=== PATIENT | male | born 1975 | race Caucasian/White ===

== ENCOUNTER 2018-05-24 06:04 | Emergency (ER) | payer OTHER ==
--- NOTE | 2018-05-24 06:22 | ED ---
Influenza-Like Illness - HPI Summary HPI Summary: Patient is a 43 y/o male who presents to the ED c/o fever. Last night he began to have a headache, subjective fever, body aches, and chills at 21:00. At 00:30 this morning he also started to have N/V. He denies any rash, dysuria, hematuria , cough, congestion, or abdominal pain. Patient had a normal BM yesterday. As per , their child is at home sick with a fever and cough. Patient also notes that he had a lumbar disc fusion surgery last week in [place]. He rates his current pain as an 8/10 in severity. Patient denies any pain radiating down his legs. He is currently taking Percocet, Flexeril, Duphalac, and Miralax. - History of Current Complaint Chief Complaint: EDFluSymptoms Time Seen by Provider: 05/24/18 06:16 Hx Obtained From: Patient Onset/Duration: Gradual Onset, Lasting Days - Yesterday at 21:00, Still Present Severity: Severe - 8/10 Associated Signs & Symptoms: Fever, Headache, Vomiting Related Hx: Possible Flu/Infectious Exposure - child sick at home - Allergy/Home Medications Allergies/Adverse Reactions: Allergies Allergy/AdvReac Type Severity Reaction Status Date / Time No Known Allergies Allergy Verified 09/25/16 15:18 PMH/Surg Hx/FS Hx/Imm Hx Endocrine/Hematology History: Denies: Hx Diabetes Musculoskeletal History: Reports: Hx Back Problems Denies: Hx Scoliosis Neurological History: Reports: Other Neuro Impairments/Disorders - PAIN CLINIC PT - Surgical History Surgery Procedure, Year, and Place: lumbar disc fusion Infectious Disease History: No Infectious Disease History: Denies: Traveled Outside the in Last 30 Days - Family History Known Family History: Negative: Hypertension, Diabetes - Social History Alcohol Use: None Hx Substance Use: No Substance Use Type: Reports: None Hx Tobacco Use: Yes Smoking Status (MU): Former Smoker Type: Cigarettes Amount Used/How Often: < 1/2 PPD Have You Smoked in the Last Year: Yes Review of Systems Positive: Fever - subjective, Chills, Other - Body aches Negative: Other - congestion Negative: Cough Positive: Vomiting, Nausea. Negative: Abdominal Pain Negative: dysuria, hematuria Positive: Myalgia - back. Negative: Other - pain down legs Negative: Rash Positive: Headache All Other Systems Reviewed And Are Negative: Yes Physical Exam - Summary Physical Exam Summary: Appearance: Well appearing, no pain distress Skin: warm, dry, reflects adequate perfusion Head/face: normal Eyes: EOMI, JESSICA ENT: mucous membranes moist, mild right ear canal erythema, minimal clear nasal discharge Neck: supple, non-tender Respiratory: CTA, breath sounds present Cardiovascular: RRR, pulses symmetrical Abdomen: non-tender, soft, midline lumbar surgical scar, clean dry and intact, no warmth or swelling surrounding, no induration Bowel Sounds: present Musculoskeletal: normal, strength/ROM intact, wearing aspirin lumbar brace Neuro: normal, sensory motor intact, A&Ox3 Triage Information Reviewed: Yes Vital Signs On Initial Exam: Initial Vitals Temp Pulse Resp BP Pulse Ox 97.4 F 83 18 109/82 98 05/24/18 06:09 05/24/18 06:09 05/24/18 06:09 05/24/18 06:09 05/24/18 06:09 Vital Signs Reviewed: Yes Diagnostics - Vital Signs Vital Signs Temp Pulse Resp BP Pulse Ox 05/24/18 06:09 97.4 F 83 18 109/82 98 - Laboratory Lab Statement: Any lab studies that have been ordered have been reviewed, and results considered in the medical decision making process. Flu Symptom Course/Dx - Course Course Of Treatment: Nurse's notes reviewed. Patient is 1 week postop from lumbar fusion. His wound is clean dry and intact. No fever and with normal vitals on arrival. Myalgias child at home with illness. Signing pt out to [facility] Jar[facility]illo, pending laboratories, CXR and Influenza. - Diagnoses Provider Diagnoses: Post-operative pain, Myalgia Discharge - Sign-Out/Discharge Documenting (check all that apply): Sign-Out Patient Signing out patient TO: Elena Bullock Patient Received Moderate/Deep Sedation with Procedure: No - Discharge Plan Condition: Stable Referrals: No Primary Care Phys,NOPCP [Primary Care Provider] - - Billing Disposition and Condition Condition: STABLE - Attestation Statements Document Initiated by Scribe: Yes Documenting Scribe: Nena Wilkinson Provider For Whom Scribe is Documenting (Include Credential): Guy Grant MD Scribe Attestation: Nena Girard, scribed for Guy Grant MD on 05/24/18 at 0647. Scribe Documentation Reviewed: Yes Provider Attestation: The documentation as recorded by the scribe, Nena Wilkinson accurately reflects the service I personally performed and the decisions made by me, Guy Grant MD Status of Scribe Document: Viewed
[2018-05-24] MEDS ORDERED: Acetaminophen TAB* 325 MG PO ONE (06:27)
[2018-05-24] MEDS ORDERED: NS 0.9% 1000 ML** 1,000 ML IV ONE (06:27)
[2018-05-24 06:40] LABS: Urine Appearance Turbid; Urine Bilirubin Negative (Negative); Urine Blood Negative (Negative); Urine Color Yellow; Urine Glucose Negative (Negative); Urine Ketones Negative (Negative); Urine Nitrite Negative (Negative); Urine Protein Negative (Negative); Urine Specific Gravity 1.019 (1.010-1.030); Urine Urobilinogen Negative (Negative)
[2018-05-24 06:54] LABS: Influenza A Molecular NEGATIVE (Negative); Influenza B Molecular NEGATIVE (Negative)
[2018-05-24 07:02] LABS: ABS Basophils 0.1 10^3/ul (0-0.2); ABS Eosinophils 0.2 10^3/ul (0-0.6); ABS Lymphocytes 1.6 10^3/ul (1.0-4.8); ABS Monocytes 0.7 10^3/ul (0-0.8); ABS Neutrophils 5.4 10^3/ul (1.5-7.7); ABS Nucleated RBC 0 10^3/ul; Eosinophil % 2.1 %; Hematocrit 36 % (36-46); Hemoglobin 12.7 g/dL (14.0-18.0); Lymphocyte % 20.5 %; Mean Corpuscular HGB Conc 35 g/dL (31-36); Mean Corpuscular Hemoglobin 30 pg (27-31); Mean Corpuscular Volume 85 fL (80-94); Mean Platelet Volume 8.4 fL (7.4-10.4); Nucleated Red Blood Cells % 0; Platelet Count 313 10^3/uL (150-450); Red Blood Count 4.27 10^6 /uL (4.18-5.48); Red Cell Distribution Width 13 % (10.5-15)
[2018-05-24 07:07] LABS: Albumin 4.5 g/dL (3.2-5.2); Albumin/Globulin Ratio 1.5 (1-3); BUN/Creatinine Ratio 29.6 (8-20); C Reactive Protein 36.75 mg/L (<8.01); Calcium 9.3 mg/dL (8.6-10.3); EGFR African American 147.9 (>60); EGFR Non-African American 122.3 (>60); Globulin 3.1 g/dL (2-4); Potassium 4.3 mmol/L (3.5-5.0); Total Bilirubin 0.4 mg/dL (0.2-1.0); Total Protein 7.6 g/dL (6.4-8.9)
[2018-05-24 08:24] VITALS: BP 114/68
--- NOTE | 2018-05-24 08:26 | PN ---
Progress Note - Progress Note Date of Service: 05/24/18 Note: Received signout from Dr. Grant. Patient's labs, UA, chest x-ray completed and shows no evidence of infection or cardiothoracic disease. Patient states his headache has improved. Currently denying any nausea and vomiting. He will be discharged home and will follow-up with his PCP. No evidence of irritation or infection at the surgical site. He is unable to take ibuprofen due to his recent surgery, however and encouraged him to continue his Percocet or only Tylenol for his discomfort. He is encouraged fluids. Zofran given as prescription. He is discharged home in stable condition.
== END 2018-05-24 08:24 | disposition home or self-care (01) ==
LOC: ED 06:04
DX: G89.18 Other acute postprocedural pain (principal); M79.10 Myalgia, unspecified site; Z87.891 Personal history of nicotine dependence; R50.9 Fever, unspecified; R51 Headache; R11.10 Vomiting, unspecified; R11.2 Nausea with vomiting, unspecified
CPT/HCPCS: 36415; 71045; 80053; 81003; 83605; 85025; 86140; 99283; A9270-GY